=== PATIENT | male | born 1940 | race Native Hawaiian/Other Pacific Islander ===

== ENCOUNTER 2020-10-04 12:03 | Outpatient (CLI) | payer OTHER ==
[~2020-10-04 12:03] MED LIST: AMBIEN5 MG PO; ANAS1TAB PO; ASA LOW DOSE81 MG PO; CLONAZEP ODT2 MG PO; LEXAPRO20 MG PO; PHEN100C15 PO; SIMV40TA57 PO; TEST200I2 IM; TRAZ50TA36 PO
== END 2020-10-04 19:37 | disposition home or self-care (01) ==
LOC: CT 12:03
PROVIDERS: ATTEND Registered Nurse
DX: R10.84 Generalized abdominal pain (principal)
CPT/HCPCS: 36415; 82565; 84520; Q9963

== ENCOUNTER 2020-10-24 08:03 | Outpatient (CLI) | payer OTHER | END 2020-10-24 21:42 | disposition home or self-care (01) | LOC: NM 08:03 | PROVIDERS: ATTEND Nurse Practitioner | DX: R10.11 Right upper quadrant pain (principal) | CPT/HCPCS: A9537 ==

== ENCOUNTER 2021-03-12 11:54 | Day surgery (SDC) | payer OTHER ==
[2021-03-05 13:34] LABS: PLATELET COUNT 140 K/uL (142-355)
[2021-03-05 13:48] LABS: POTASSIUM 4.1 mmol/L (3.6-5.2)
[~2021-03-12] VITALS: Ht 30.5 cm; Wt 0.5 kg
== END 2021-03-12 15:50 | disposition home or self-care (01) ==
LOC: OR 11:54
PROVIDERS: ATTEND Internal Medicine Gastroenterology
PROC: 0DB68ZZ Excision of Stomach, Via Natural or Artificial Opening Endoscopic (ICD-10-PCS; principal; 2021-03-12)
PROC: 0DB88ZZ Excision of Small Intestine, Via Natural or Artificial Opening Endoscopic (ICD-10-PCS; 2021-03-12)
DX: K21.00 Gastro-esophageal reflux disease with esophagitis, without bleeding (principal); K29.50 Unspecified chronic gastritis without bleeding; K31.7 Polyp of stomach and duodenum; R10.13 Epigastric pain; Z20.822 Contact with and (suspected) exposure to COVID-19
CPT/HCPCS: 80053; 85027; 87635; J2704; U0003

== ENCOUNTER 2022-01-12 06:28 | Emergency (ER) | payer OTHER ==
[~2022-01-12] VITALS: Ht 170.2 cm; Wt 67.1 kg
[2022-01-12 07:48] LABS: POTASSIUM 4.2 mmol/L (3.6-5.2); SODIUM 140 mmol/L (136-145)
[2022-01-12 07:50] LABS: PLATELET COUNT 157 K/uL (142-355)
[2022-01-12 07:53] LABS: PARTIAL THROMBOPLASTIN TIME 28.1 SECONDS (24.5-33.6)
[2022-01-12 12:10] VITALS: BP 144/52; TEMP 97.8
== END 2022-01-12 12:10 | disposition still patient (30) ==
LOC: ED 06:28
PROVIDERS: Hospitalist
DX: R10.84 Generalized abdominal pain (principal); E86.0 Dehydration; R11.2 Nausea with vomiting, unspecified
CPT/HCPCS: 80053; 80185; 81000; 82550; 83690; 83880; 84484; 85027; 85610; 85730; 93005; 96360; 96374; 99284; J2405; Q9963

== ENCOUNTER 2022-01-16 17:42 | Emergency (ER) | payer OTHER ==
[~2022-01-16] VITALS: Ht 170.2 cm; Wt 67.1 kg
[2022-01-16 18:25] LABS: PLATELET COUNT 159 K/uL (142-355)
[2022-01-16 20:29] LABS: POTASSIUM 3.8 mmol/L (3.6-5.2)
[2022-01-17 01:00] VITALS: BP 141/71; TEMP 98.1
[2022-01-17] MEDS ORDERED: PANTOPRAZOLE SO40 M1 PO (22:53)
[2022-01-17] MEDS ORDERED: ELIQUIS5 MG PO (22:53)
[2022-01-17] MEDS ORDERED: FUROSEMIDE20 MG PO (22:54)
[2022-01-17] MEDS ORDERED: POTASSIUM CHLO10 ME1 PO (22:54)
[2022-01-17] MEDS ORDERED: TAMSULOSIN HYD0.4 MG PO (22:55)
[2022-01-17] MEDS ORDERED: CARB25TA29 PO (22:56)
[2022-01-17] MEDS ORDERED: SERT100T PO (22:58)
== END 2022-01-17 01:00 | disposition still patient (30) ==
LOC: ED 17:42
PROVIDERS: Emergency Medicine
DX: G30.8 Other Alzheimer's disease (principal); F02.81 Dementia in other diseases classified elsewhere, unspecified severity, with behavioral disturbance; E86.0 Dehydration; I48.92 Unspecified atrial flutter; Z11.52 Encounter for screening for COVID-19; Z04.6 Encounter for general psychiatric examination, requested by authority
CPT/HCPCS: 36415; 80053; 81000; 84443; 84484; 85027; 85610; 87635; 93005; 96372; 99285; J1630; J2060; U0003

== ENCOUNTER 2022-02-14 13:32 | Emergency (ER) | payer OTHER ==
[~2022-02-14] VITALS: Ht 167.6 cm; Wt 68.0 kg
[~2022-02-14 13:32] MED LIST changes: +ACET-206 PO; +APIX1TAB PO; +CARB25TA29 PO; +CLON0.5T36 PO; +ELIQUIS5 MG PO; +FURO20TA67 PO; +FUROSEMIDE20 MG PO; +Flonase Nasal Inhale NAS; +LACTSYP31 PO; +METH4TAB6 PO; +PANTOPRAZOLE 40MG TA PO; +PANTOPRAZOLE SO40 M1 PO; +POTA10CA3 PO; +POTASSIUM CHLO10 ME1 PO; +SERT100T PO; +SERT50TA PO; +TAMS0.4C PO; +TAMSULOSIN HYD0.4 MG PO
[2022-02-14 13:52] VITALS: BP 154/62; TEMP 98
[2022-02-14 14:16] LABS: PLATELET COUNT 223 K/uL (142-355)
[2022-02-14 14:26] LABS: POTASSIUM 3.8 mmol/L (3.6-5.2)
== END 2022-02-14 15:38 ==
LOC: ED 13:32
PROVIDERS: Family Medicine
DX: F03.91 Unspecified dementia, unspecified severity, with behavioral disturbance (principal); R73.9 Hyperglycemia, unspecified; Z11.52 Encounter for screening for COVID-19; Z04.6 Encounter for general psychiatric examination, requested by authority
CPT/HCPCS: 80053; 85007; 85027; 87635; 93005; 99283; U0003